=== PATIENT | male | born 1960 | race Caucasian/White ===

== ENCOUNTER 2018-11-23 21:28 | Inpatient (IN) | payer MEDICAID ==
[2018-11-23 23:39] LABS: ADD MAN DIFF? NO
[2018-11-23] MEDS: PIPER-TAZO 3.375 GM IV (PMX) 100 ML IVPB (23:40)
[2018-11-23] MEDS: VANCOMYCIN 1 GM (PMX) 250 ML IVPB (23:40)
[2018-11-23] MEDS: SOD CHLORIDE 0.9% 500 ML IV (23:41)
[2018-11-23 23:44] LABS: BASOPHILS % 0.7 % (0.0-2.0); EOSINOPHILS # 0.2 10^3/ul (0.0-0.5); EOSINOPHILS % 3.9 % (0.0-7.0); HEMATOCRIT 38.5 % (42.0-52.0); HEMOGLOBIN 13.2 g/dl (14.0-18.0); LYMPHOCYTES # 2.1 10^3/ul (0.8-2.9); LYMPHOCYTES % 36.1 % (15.0-51.0); MEAN CORPUSCULAR HEMOGLOBIN 29.3 pg (29.0-33.0); MEAN CORPUSCULAR HGB CONC 34.3 g/dl (32.0-37.0); MEAN CORPUSCULAR VOLUME 85.4 fl (82.0-101.0); MEAN PLATELET VOLUME 9.3 fl (7.4-10.4); MONOCYTE # 0.5 10^3/ul (0.3-0.9); MONOCYTES % 7.8 % (0.0-11.0); NEUTROPHILS % 51.2 % (39.0-77.0); PLATELET COUNT 267 10^3/UL (140-415); RED BLOOD COUNT 4.51 10^6/ul (4.70-6.10)
[2018-11-23 23:44] LABS: WHITE BLOOD COUNT 5.9 10^3/ul (4.8-10.8)
[2018-11-23 23:58] LABS: ALANINE AMINOTRANSFERASE 33 IU/L (13-69); ALBUMIN 3.8 g/dl (3.3-4.9); ALBUMIN/GLOBULIN RATIO 1.26; ALKALINE PHOSPHATASE 116 IU/L (42-121); ANION GAP 9 (5-13); ASPARTATE AMINO TRANSFERASE 24 IU/L (15-46); BILIRUBIN,INDIRECT 0.3 mg/dl (0-1.1); BILIRUBIN,TOTAL 0.3 mg/dl (0.2-1.3); BLOOD UREA NITROGEN 24 mg/dl (7-20); CALCIUM 8.9 mg/dl (8.4-10.2); CARBON DIOXIDE 26 mmol/L (21-31); CHLORIDE 106 mmol/L (97-110); CREATININE 0.78 mg/dl (0.61-1.24); Estimated GFR > 60 mL/min (>60); GLUCOSE 266 mg/dl (70-220); LIPASE 90 U/L (23-300); POTASSIUM 4.5 mmol/L (3.5-5.1); SODIUM 141 mmol/L (135-144); TOTAL PROTEIN 6.8 g/dl (6.1-8.1)
[2018-11-24] MEDS ORDERED: ACETAMINOPHEN 325 MG TAB PO
[2018-11-24] MEDS ORDERED: BISACODYL (EC) 5 MG TAB PO (00:30)
[2018-11-24] MEDS ORDERED: VANCOMYCIN IV PER PHARMACY XX (00:30)
[2018-11-24] MEDS ORDERED: ONDANSETRON 4 MG INJ IV ×2 (00:30)
[2018-11-24] MEDS ORDERED: NACL 0.9% 3 ML SYG IV (00:30)
[2018-11-24] MEDS ORDERED: DOCUSATE SODIUM 100 MG CAP PO (00:30)
[2018-11-24] MEDS ORDERED: DEXTROSE 50% 50 ML SYRINGE IV ×2 (01:00)
[2018-11-24] MEDS ORDERED: GLUCAGON 1 MG INJ IM (01:00)
[2018-11-24] MEDS ORDERED: GLUCOSE GEL 15 GRAM TUBE BUCCAL (01:00)
[2018-11-24] MEDS ORDERED: GLUCOSE GEL 15 GRAM TUBE PO ×2 (01:00)
[2018-11-24] MEDS: VANCOMYCIN 750 MG (PMX) 250 ML IVPB (01:48)
[2018-11-24] MEDS: ACCU-CHEK XX (03:11)
[2018-11-24] MEDS: INSULIN ASPART [NOVOLOG] 3 ML PEN SC ×6 (03:11→20:11)
[2018-11-24 03:24] LABS: ADD UMIC YES; UR ASCORBIC ACID NEGATIVE (NEGATIVE); UR BILIRUBIN (Dip) NEGATIVE (NEGATIVE); UR BLOOD (Dip) NEGATIVE (NEGATIVE); UR CLARITY CLEAR (CLEAR); UR COLOR YELLOW (YELLOW); UR GLUCOSE (Dip) 3+ mg/dL (NEGATIVE); UR KETONES (Dip) NEGATIVE (NEGATIVE); UR LEUKOCYTE ESTERASE (Dip) NEGATIVE Leu/ul (NEGATIVE); UR NITRITE (Dip) NEGATIVE (NEGATIVE); UR RBC 1 /HPF (0-5); UR SPECIFIC GRAVITY (Dip) 1.025 (1.003-1.030); UR TOTAL PROTEIN (Dip) 1+ mg/dl (NEGATIVE); UR UROBILINOGEN (Dip) NEGATIVE (NEGATIVE); UR WBC 0 /HPF (0-5)
[2018-11-24] MEDS: SOD CHLORIDE 0.9% 1,000 ML IV ×2 (04:48→22:16)
[2018-11-24 05:43] LABS: ADD MAN DIFF? NO
[2018-11-24 05:48] LABS: WHITE BLOOD COUNT 5.3 10^3/ul (4.8-10.8)
[2018-11-24 05:48] LABS: BASOPHIL # 0.1 10^3/ul (0.0-0.1); BASOPHILS % 0.9 % (0.0-2.0); EOSINOPHILS # 0.2 10^3/ul (0.0-0.5); HEMATOCRIT 38.1 % (42.0-52.0); HEMOGLOBIN 12.7 g/dl (14.0-18.0); LYMPHOCYTES # 1.8 10^3/ul (0.8-2.9); LYMPHOCYTES % 33.3 % (15.0-51.0); MEAN CORPUSCULAR HEMOGLOBIN 28.4 pg (29.0-33.0); MEAN CORPUSCULAR HGB CONC 33.3 g/dl (32.0-37.0); MEAN CORPUSCULAR VOLUME 85.2 fl (82.0-101.0); MEAN PLATELET VOLUME 8.9 fl (7.4-10.4); MONOCYTE # 0.5 10^3/ul (0.3-0.9); MONOCYTES % 8.5 % (0.0-11.0); NEUTROPHIL # 2.8 10^3/ul (1.6-7.5); NEUTROPHILS % 52.9 % (39.0-77.0); PLATELET COUNT 228 10^3/UL (140-415); RED BLOOD COUNT 4.47 10^6/ul (4.70-6.10); RED CELL DISTRIBUTION WIDTH 12.9 % (11.5-14.5)
[2018-11-24] MEDS: LISINOPRIL 10 MG TAB PO (05:57)
[2018-11-24] MEDS: PIPER-TAZO 3.375 GM IV (PMX) 100 ML IVPB ×3 (05:57→17:08)
[2018-11-24 06:10] LABS: INR 0.96; PROTIME 12.9 Sec (11.9-14.9)
[2018-11-24 06:11] LABS: PARTIAL THROMBOPLASTIN TIME 28.4 Sec (23.0-35.0)
[2018-11-24 06:15] LABS: ALANINE AMINOTRANSFERASE 26 IU/L (13-69); ALBUMIN 3.5 g/dl (3.3-4.9); ALBUMIN/GLOBULIN RATIO 1.16; ALKALINE PHOSPHATASE 106 IU/L (42-121); ANION GAP 7 (5-13); ASPARTATE AMINO TRANSFERASE 22 IU/L (15-46); BILIRUBIN,INDIRECT 0.3 mg/dl (0-1.1); BILIRUBIN,TOTAL 0.3 mg/dl (0.2-1.3); BLOOD UREA NITROGEN 19 mg/dl (7-20); CALCIUM 8.7 mg/dl (8.4-10.2); CARBON DIOXIDE 23 mmol/L (21-31); CHLORIDE 111 mmol/L (97-110); CHOL/HDL RATIO 6.6 RATIO; CHOLESTEROL 167 mg/dl (100-200); CREATININE 0.65 mg/dl (0.61-1.24); Estimated GFR > 60 mL/min (>60); GLUCOSE 229 mg/dl (70-220); HDL CHOLESTEROL 25 mg/dl (28-71); LDL CHOLESTEROL,CALCULATED 89 mg/dl; MAGNESIUM 1.9 mg/dl (1.7-2.5); POTASSIUM 4.7 mmol/L (3.5-5.1); SODIUM 141 mmol/L (135-144); TOTAL PROTEIN 6.5 g/dl (6.1-8.1); TRIGLYCERIDES 267 mg/dl (0-149)
[2018-11-24 06:25] LABS: HEMOGLOBIN A1C 8.6 % (0-5.9)
[2018-11-24 08:15] LABS: ERYTHROCYTE SEDIMENTATION RATE 10 mm/Hr (0-20)
[2018-11-24] MEDS: VANCOMYCIN 1.25 GM/NS 250 ML 250 ML IVPB (13:33)
[2018-11-24] MEDS: HYDROCODONE/APAP (5/325) TAB PO (19:21)
[2018-11-24] MEDS: METOPROLOL 50 MG TAB PO (21:00)
[2018-11-24] MEDS ORDERED: PENDING SANTYL ORDER FOR WOUND CARE XX (23:00)
[2018-11-25] MEDS: INSULIN ASPART [NOVOLOG] 3 ML PEN SC ×6 (00:29→20:35)
[2018-11-25] MEDS: VANCOMYCIN 1.25 GM/NS 250 ML 250 ML IVPB ×2 (00:29→12:09)
[2018-11-25] MEDS: PIPER-TAZO 3.375 GM IV (PMX) 100 ML IVPB ×3 (00:29→11:20)
[2018-11-25] MEDS: ACCU-CHEK XX (01:25)
[2018-11-25] MEDS: SOD CHLORIDE 0.9% 1,000 ML IV ×3 (02:50→20:38)
[2018-11-25 05:17] LABS: ADD MAN DIFF? NO
[2018-11-25 05:22] LABS: WHITE BLOOD COUNT 6.3 10^3/ul (4.8-10.8)
[2018-11-25 05:22] LABS: BASOPHIL # 0.1 10^3/ul (0.0-0.1); BASOPHILS % 0.8 % (0.0-2.0); EOSINOPHILS # 0.2 10^3/ul (0.0-0.5); HEMATOCRIT 42.3 % (42.0-52.0); HEMOGLOBIN 13.8 g/dl (14.0-18.0); LYMPHOCYTES # 1.8 10^3/ul (0.8-2.9); LYMPHOCYTES % 27.8 % (15.0-51.0); MEAN CORPUSCULAR HEMOGLOBIN 27.9 pg (29.0-33.0); MEAN CORPUSCULAR HGB CONC 32.6 g/dl (32.0-37.0); MEAN CORPUSCULAR VOLUME 85.6 fl (82.0-101.0); MEAN PLATELET VOLUME 8.7 fl (7.4-10.4); MONOCYTE # 0.4 10^3/ul (0.3-0.9); MONOCYTES % 6.5 % (0.0-11.0); NEUTROPHIL # 3.9 10^3/ul (1.6-7.5); NEUTROPHILS % 61.6 % (39.0-77.0); PLATELET COUNT 244 10^3/UL (140-415); RED BLOOD COUNT 4.94 10^6/ul (4.70-6.10); RED CELL DISTRIBUTION WIDTH 13.1 % (11.5-14.5)
[2018-11-25 05:47] LABS: ALANINE AMINOTRANSFERASE 28 IU/L (13-69); ALBUMIN 3.6 g/dl (3.3-4.9); ALBUMIN/GLOBULIN RATIO 1.12; ALKALINE PHOSPHATASE 91 IU/L (42-121); ANION GAP 5 (5-13); ASPARTATE AMINO TRANSFERASE 23 IU/L (15-46); BILIRUBIN,INDIRECT 0.6 mg/dl (0-1.1); BILIRUBIN,TOTAL 0.6 mg/dl (0.2-1.3); BLOOD UREA NITROGEN 14 mg/dl (7-20); C-REACTIVE PROTEIN 0.7 mg/dl (0.0-0.9); CALCIUM 9.3 mg/dl (8.4-10.2); CARBON DIOXIDE 30 mmol/L (21-31); CHLORIDE 105 mmol/L (97-110); CREATININE 0.79 mg/dl (0.61-1.24); Estimated GFR > 60 mL/min (>60); GLUCOSE 160 mg/dl (70-220); POTASSIUM 4.5 mmol/L (3.5-5.1); SODIUM 140 mmol/L (135-144); TOTAL PROTEIN 6.8 g/dl (6.1-8.1)
[2018-11-25] MEDS: ACETAMINOPHEN 325 MG TAB PO (05:48)
[2018-11-25] MEDS: METOPROLOL 50 MG TAB PO (08:23)
[2018-11-25] MEDS: LISINOPRIL 20 MG TAB PO (08:23)
[2018-11-25] MEDS: MULTIVITAMINS THERAPEUTIC TAB PO (12:05)
[2018-11-25] MEDS: ZINC SULFATE 220 MG CAP PO (12:05)
[2018-11-25] MEDS: ASCORBIC ACID 500 MG TAB PO ×2 (12:05→20:33)
[2018-11-25] MEDS: CEFTRIAXONE 1 GM/50 ML (PMX) 50 ML IVPB (14:30)
[2018-11-25 16:43] LABS: CREATININE, RANDOM URINE 82 mg/dL (20-320); MICROALBUMIN 9.6 mg/dL; MICROALBUMIN/CREATININE RATIO 117 (<30)
[2018-11-25] MEDS: AMLODIPINE 10 MG TAB PO (17:15)
[2018-11-25] MEDS: hydrALAzine 20 MG INJ IV (20:33)
[2018-11-26] MEDS: VANCOMYCIN 1.5 GM/NS 250 ML 250 ML IVPB ×3 (01:06→23:49)
[2018-11-26] MEDS: INSULIN ASPART [NOVOLOG] 3 ML PEN SC ×6 (01:16→20:33)
[2018-11-26] MEDS: ACCU-CHEK XX (01:16)
[2018-11-26 06:52] LABS: ADD MAN DIFF? NO
[2018-11-26 06:56] LABS: BASOPHIL # 0.1 10^3/ul (0.0-0.1); BASOPHILS % 0.7 % (0.0-2.0); EOSINOPHILS # 0.2 10^3/ul (0.0-0.5); EOSINOPHILS % 2.9 % (0.0-7.0); HEMATOCRIT 40.9 % (42.0-52.0); HEMOGLOBIN 13.6 g/dl (14.0-18.0); LYMPHOCYTES # 1.9 10^3/ul (0.8-2.9); LYMPHOCYTES % 26.1 % (15.0-51.0); MEAN CORPUSCULAR HEMOGLOBIN 28.3 pg (29.0-33.0); MEAN CORPUSCULAR HGB CONC 33.3 g/dl (32.0-37.0); MEAN CORPUSCULAR VOLUME 85.2 fl (82.0-101.0); MEAN PLATELET VOLUME 9.1 fl (7.4-10.4); MONOCYTE # 0.5 10^3/ul (0.3-0.9); MONOCYTES % 6.3 % (0.0-11.0); NEUTROPHIL # 4.7 10^3/ul (1.6-7.5); NEUTROPHILS % 63.7 % (39.0-77.0); PLATELET COUNT 258 10^3/UL (140-415)
[2018-11-26 06:56] LABS: WHITE BLOOD COUNT 7.3 10^3/ul (4.8-10.8)
[2018-11-26 07:26] LABS: ALANINE AMINOTRANSFERASE 30 IU/L (13-69); ALBUMIN 3.4 g/dl (3.3-4.9); ALBUMIN/GLOBULIN RATIO 1.06; ALKALINE PHOSPHATASE 84 IU/L (42-121); ANION GAP 6 (5-13); ASPARTATE AMINO TRANSFERASE 19 IU/L (15-46); BILIRUBIN,INDIRECT 0.4 mg/dl (0-1.1); BILIRUBIN,TOTAL 0.4 mg/dl (0.2-1.3); BLOOD UREA NITROGEN 15 mg/dl (7-20); CALCIUM 9.3 mg/dl (8.4-10.2); CARBON DIOXIDE 28 mmol/L (21-31); CHLORIDE 106 mmol/L (97-110); CREATININE 0.85 mg/dl (0.61-1.24); Estimated GFR > 60 mL/min (>60); GLUCOSE 187 mg/dl (70-220); POTASSIUM 4.5 mmol/L (3.5-5.1); SODIUM 140 mmol/L (135-144); TOTAL PROTEIN 6.6 g/dl (6.1-8.1)
[2018-11-26] MEDS: LISINOPRIL 20 MG TAB PO (08:32)
[2018-11-26] MEDS: AMLODIPINE 10 MG TAB PO (08:33)
[2018-11-26] MEDS: ZINC SULFATE 220 MG CAP PO (08:34)
[2018-11-26] MEDS: ASCORBIC ACID 500 MG TAB PO ×2 (08:34→20:34)
[2018-11-26] MEDS: MULTIVITAMINS THERAPEUTIC TAB PO (08:34)
[2018-11-26] MEDS: CEFTRIAXONE 1 GM/50 ML (PMX) 50 ML IVPB ×2 (14:00→17:21)
[2018-11-26] MEDS ORDERED: PROPOFOL 20 ML (15:23)
[2018-11-26] MEDS ORDERED: FENTAnyl 50 MCG/ML VIAL (15:23)
[2018-11-26] MEDS ORDERED: MIDAZOLAM 1 MG/ML 2 ML INJ (15:23)
[2018-11-26] MEDS ORDERED: ROPIVACAINE 0.2% 20 ML VIAL (15:24)
[2018-11-26] MEDS: LIDOCAINE 1% (MPF) 10 ML INJ INJ (15:30)
[2018-11-26] MEDS: SOD CHLORIDE 0.9% 1,000 ML IV (18:38)
[2018-11-27] MEDS ORDERED: INSULIN ASPART [NOVOLOG] 3 ML PEN SC (01:00)
[2018-11-27] MEDS: INSULIN ASPART [NOVOLOG] 3 ML PEN SC ×6 (01:28→20:47)
[2018-11-27] MEDS: ACCU-CHEK XX (02:00)
[2018-11-27] MEDS: morphine 2 MG INJ IV ×2 (05:12→20:48)
[2018-11-27 06:07] LABS: ADD MAN DIFF? NO
[2018-11-27 06:16] LABS: WHITE BLOOD COUNT 6.4 10^3/ul (4.8-10.8)
[2018-11-27 06:16] LABS: BASOPHIL # 0.1 10^3/ul (0.0-0.1); BASOPHILS % 0.8 % (0.0-2.0); EOSINOPHILS # 0.2 10^3/ul (0.0-0.5); EOSINOPHILS % 3.6 % (0.0-7.0); HEMATOCRIT 40.5 % (42.0-52.0); HEMOGLOBIN 13.6 g/dl (14.0-18.0); LYMPHOCYTES # 1.8 10^3/ul (0.8-2.9); LYMPHOCYTES % 27.2 % (15.0-51.0); MEAN CORPUSCULAR HEMOGLOBIN 28.4 pg (29.0-33.0); MEAN CORPUSCULAR HGB CONC 33.6 g/dl (32.0-37.0); MEAN CORPUSCULAR VOLUME 84.6 fl (82.0-101.0); MEAN PLATELET VOLUME 9.1 fl (7.4-10.4); MONOCYTE # 0.6 10^3/ul (0.3-0.9); MONOCYTES % 8.9 % (0.0-11.0); NEUTROPHIL # 3.8 10^3/ul (1.6-7.5); NEUTROPHILS % 59.3 % (39.0-77.0); PLATELET COUNT 256 10^3/UL (140-415); RED BLOOD COUNT 4.79 10^6/ul (4.70-6.10); RED CELL DISTRIBUTION WIDTH 12.9 % (11.5-14.5)
[2018-11-27 06:49] LABS: ALANINE AMINOTRANSFERASE 29 IU/L (13-69); ALBUMIN 3.5 g/dl (3.3-4.9); ALBUMIN/GLOBULIN RATIO 1.16; ALKALINE PHOSPHATASE 83 IU/L (42-121); ANION GAP 5 (5-13); ASPARTATE AMINO TRANSFERASE 23 IU/L (15-46); BILIRUBIN,INDIRECT 0.4 mg/dl (0-1.1); BILIRUBIN,TOTAL 0.4 mg/dl (0.2-1.3); BLOOD UREA NITROGEN 17 mg/dl (7-20); CALCIUM 9.1 mg/dl (8.4-10.2); CARBON DIOXIDE 28 mmol/L (21-31); CHLORIDE 106 mmol/L (97-110); CREATININE 0.89 mg/dl (0.61-1.24); Estimated GFR > 60 mL/min (>60); GLUCOSE 196 mg/dl (70-220); POTASSIUM 4.5 mmol/L (3.5-5.1); SODIUM 139 mmol/L (135-144); TOTAL PROTEIN 6.5 g/dl (6.1-8.1)
[2018-11-27] MEDS ORDERED: HEPARIN 1000 UNITS/NS (A-LINE) 1,000 ML (06:57)
[2018-11-27] MEDS ORDERED: LIDOCAINE 1% (MDV) 20 ML INJ (06:57)
[2018-11-27] MEDS ORDERED: FENTAnyl 50 MCG/ML VIAL (06:57)
[2018-11-27] MEDS ORDERED: IODIXANOL LOCM 100 ML BTL (06:57)
[2018-11-27] MEDS ORDERED: MIDAZOLAM 1 MG/ML 2 ML INJ (06:58)
[2018-11-27] MEDS ORDERED: CLOPIDOGREL 300 MG TAB (08:28)
[2018-11-27] MEDS ORDERED: SOD CHLORIDE 0.9% 500 ML (08:28)
[2018-11-27] MEDS: CLOPIDOGREL 75 MG TAB PO (09:05)
[2018-11-27] MEDS: LISINOPRIL 20 MG TAB PO (10:22)
[2018-11-27] MEDS: MULTIVITAMINS THERAPEUTIC TAB PO (10:22)
[2018-11-27] MEDS: AMLODIPINE 10 MG TAB PO (10:22)
[2018-11-27] MEDS: ZINC SULFATE 220 MG CAP PO (10:22)
[2018-11-27] MEDS: ASCORBIC ACID 500 MG TAB PO ×2 (10:24→20:48)
[2018-11-27] MEDS: SOD CHLORIDE 0.9% 1,000 ML IV ×3 (12:39→21:30)
[2018-11-27 12:51] LABS: VANCOMYCIN,TROUGH 11.4 ug/ml (10.0-20.0)
[2018-11-27] MEDS: CEFTRIAXONE 1 GM/50 ML (PMX) 50 ML IVPB (13:35)
[2018-11-27] MEDS: VANCOMYCIN 1.5 GM/NS 250 ML 250 ML IVPB (14:07)
[2018-11-27] MEDS: HYDROCODONE/APAP (5/325) TAB PO (17:23)
[2018-11-28] MEDS: VANCOMYCIN HCL 1.75 GM in SOD CHLORIDE 0.9% 500 ML IVPB ×2 (00:37→11:39)
[2018-11-28] MEDS: ACCU-CHEK XX (02:04)
[2018-11-28] MEDS: morphine 2 MG INJ IV ×2 (07:41→12:29)
[2018-11-28] MEDS: ASCORBIC ACID 500 MG TAB PO ×2 (08:16→20:48)
[2018-11-28] MEDS: LISINOPRIL 20 MG TAB PO (08:16)
[2018-11-28] MEDS: AMLODIPINE 10 MG TAB PO (08:16)
[2018-11-28] MEDS: CLOPIDOGREL 75 MG TAB PO (08:17)
[2018-11-28] MEDS: MULTIVITAMINS THERAPEUTIC TAB PO (08:17)
[2018-11-28] MEDS: ZINC SULFATE 220 MG CAP PO (08:17)
[2018-11-28] MEDS: INSULIN ASPART [NOVOLOG] 3 ML PEN SC ×4 (08:19→20:49)
[2018-11-28] MEDS: SOD CHLORIDE 0.9% 1,000 ML IV ×2 (10:22→11:41)
[2018-11-28] MEDS: DAKINS 0.0125%(1/40) 473 ML SOLUTION TP (13:45)
[2018-11-28] MEDS: CEFTRIAXONE 2 GM/50 ML (PMX) 50 ML IVPB (15:50)
[2018-11-29] MEDS: VANCOMYCIN HCL 1.75 GM in SOD CHLORIDE 0.9% 500 ML IVPB ×2 (00:38→11:38)
[2018-11-29] MEDS: ACCU-CHEK XX (02:33)
[2018-11-29] MEDS: SOD CHLORIDE 0.9% 1,000 ML IV ×2 (06:21→20:30)
[2018-11-29 07:06] LABS: CREATININE 0.82 mg/dl (0.61-1.24)
[2018-11-29 07:06] LABS: BLOOD UREA NITROGEN 14 mg/dl (7-20)
[2018-11-29] MEDS: ZINC SULFATE 220 MG CAP PO (08:31)
[2018-11-29] MEDS: CLOPIDOGREL 75 MG TAB PO (08:32)
[2018-11-29] MEDS: ASCORBIC ACID 500 MG TAB PO ×2 (08:32→20:34)
[2018-11-29] MEDS: LISINOPRIL 20 MG TAB PO (08:32)
[2018-11-29] MEDS: AMLODIPINE 10 MG TAB PO (08:32)
[2018-11-29] MEDS: MULTIVITAMINS THERAPEUTIC TAB PO (08:32)
[2018-11-29] MEDS: INSULIN ASPART [NOVOLOG] 3 ML PEN SC ×4 (08:33→20:33)
[2018-11-29] MEDS: DAKINS 0.0125%(1/40) 473 ML SOLUTION TP (12:12)
[2018-11-29] MEDS: morphine 2 MG INJ IV ×2 (15:23→15:31)
[2018-11-29] MEDS: CEFTRIAXONE 2 GM/50 ML (PMX) 50 ML IVPB (15:23)
[2018-11-29] MEDS: HYDROCODONE/APAP (5/325) TAB PO (19:42)
[2018-11-30 00:22] LABS: VANCOMYCIN,TROUGH 12.3 ug/ml (10.0-20.0)
[2018-11-30] MEDS: VANCOMYCIN HCL 1.75 GM in SOD CHLORIDE 0.9% 500 ML IVPB (00:56)
[2018-11-30] MEDS: SOD CHLORIDE 0.9% 1,000 ML IV (00:56)
[2018-11-30] MEDS: ACCU-CHEK XX (01:03)
[2018-11-30] MEDS: CLOPIDOGREL 75 MG TAB PO (08:16)
[2018-11-30] MEDS: MULTIVITAMINS THERAPEUTIC TAB PO (08:16)
[2018-11-30] MEDS: ZINC SULFATE 220 MG CAP PO (08:16)
[2018-11-30] MEDS: ASCORBIC ACID 500 MG TAB PO ×2 (08:16→21:07)
[2018-11-30] MEDS: AMLODIPINE 10 MG TAB PO (08:19)
[2018-11-30] MEDS: LISINOPRIL 20 MG TAB PO (08:19)
[2018-11-30] MEDS: INSULIN ASPART [NOVOLOG] 3 ML PEN SC ×5 (08:21→21:07)
[2018-11-30] MEDS: VANCOMYCIN HCL 2 GM in SOD CHLORIDE 0.9% 500 ML IVPB (11:43)
[2018-11-30] MEDS: DAKINS 0.0125%(1/40) 473 ML SOLUTION TP (12:05)
[2018-11-30] MEDS: INSULIN GLARGINE [LANTus] (100 UNITS/ML) SYG SC (21:06)
[2018-12-01] MEDS: VANCOMYCIN HCL 2 GM in SOD CHLORIDE 0.9% 500 ML IVPB ×2 (01:03→12:32)
[2018-12-01] MEDS: ACCU-CHEK XX (02:38)
[2018-12-01 07:09] LABS: BLOOD UREA NITROGEN 21 mg/dl (7-20)
[2018-12-01 07:09] LABS: CREATININE 0.98 mg/dl (0.61-1.24)
[2018-12-01] MEDS: INSULIN ASPART [NOVOLOG] 3 ML PEN SC ×7 (08:25→20:20)
[2018-12-01] MEDS: ZINC SULFATE 220 MG CAP PO (09:01)
[2018-12-01] MEDS: MULTIVITAMINS THERAPEUTIC TAB PO (09:01)
[2018-12-01] MEDS: ASCORBIC ACID 500 MG TAB PO ×2 (09:02→20:20)
[2018-12-01] MEDS: CLOPIDOGREL 75 MG TAB PO (09:02)
[2018-12-01] MEDS: DAKINS 0.0125%(1/40) 473 ML SOLUTION TP (09:02)
[2018-12-01] MEDS: AMLODIPINE 10 MG TAB PO (09:02)
[2018-12-01] MEDS: LISINOPRIL 20 MG TAB PO (09:02)
[2018-12-01 15:51] LABS: ADD MAN DIFF? NO
[2018-12-01 15:53] LABS: WHITE BLOOD COUNT 5.6 10^3/ul (4.8-10.8)
[2018-12-01 15:53] LABS: BASOPHILS % 0.7 % (0.0-2.0); EOSINOPHILS # 0.2 10^3/ul (0.0-0.5); EOSINOPHILS % 3.8 % (0.0-7.0); HEMATOCRIT 36.7 % (42.0-52.0); HEMOGLOBIN 12.5 g/dl (14.0-18.0); LYMPHOCYTES # 1.6 10^3/ul (0.8-2.9); LYMPHOCYTES % 27.9 % (15.0-51.0); MEAN CORPUSCULAR HEMOGLOBIN 28.5 pg (29.0-33.0); MEAN CORPUSCULAR HGB CONC 34.1 g/dl (32.0-37.0); MEAN CORPUSCULAR VOLUME 83.8 fl (82.0-101.0); MONOCYTE # 0.4 10^3/ul (0.3-0.9); MONOCYTES % 7.5 % (0.0-11.0); NEUTROPHIL # 3.4 10^3/ul (1.6-7.5); NEUTROPHILS % 59.9 % (39.0-77.0); PLATELET COUNT 268 10^3/UL (140-415); RED BLOOD COUNT 4.38 10^6/ul (4.70-6.10); RED CELL DISTRIBUTION WIDTH 12.5 % (11.5-14.5)
[2018-12-01 16:10] LABS: ANION GAP 8 (5-13); BLOOD UREA NITROGEN 20 mg/dl (7-20); CALCIUM 9.1 mg/dl (8.4-10.2); CARBON DIOXIDE 27 mmol/L (21-31); CHLORIDE 102 mmol/L (97-110); CREATININE 0.88 mg/dl (0.61-1.24); Estimated GFR > 60 mL/min (>60); GLUCOSE 276 mg/dl (70-220); SODIUM 137 mmol/L (135-144)
[2018-12-01] MEDS: HYDROCODONE/APAP (5/325) TAB PO (19:54)
[2018-12-01] MEDS: INSULIN GLARGINE [LANTus] (100 UNITS/ML) SYG SC (20:18)
[2018-12-01] MEDS: morphine 2 MG INJ IV (23:12)
[2018-12-02 00:17] LABS: VANCOMYCIN,TROUGH 22.4 ug/ml (10.0-20.0)
[2018-12-02] MEDS: ACCU-CHEK XX (02:08)
[2018-12-02] MEDS: VANCOMYCIN 1.5 GM/NS 250 ML 250 ML IVPB ×2 (05:30→17:54)
[2018-12-02] MEDS: INSULIN ASPART [NOVOLOG] 3 ML PEN SC ×7 (08:13→20:39)
[2018-12-02] MEDS: ASCORBIC ACID 500 MG TAB PO ×2 (09:35→20:26)
[2018-12-02] MEDS: CLOPIDOGREL 75 MG TAB PO (09:35)
[2018-12-02] MEDS: ZINC SULFATE 220 MG CAP PO (09:35)
[2018-12-02] MEDS: MULTIVITAMINS THERAPEUTIC TAB PO (09:36)
[2018-12-02] MEDS: LISINOPRIL 20 MG TAB PO (09:36)
[2018-12-02] MEDS: AMLODIPINE 10 MG TAB PO (09:36)
[2018-12-02] MEDS: DAKINS 0.0125%(1/40) 473 ML SOLUTION TP (09:37)
[2018-12-02] MEDS ORDERED: morphine 2 MG INJ IV (12:30)
[2018-12-02] MEDS: GABAPENTIN 100 MG CAP PO ×3 (12:34→20:27)
[2018-12-02] MEDS: HYDROCODONE/APAP (5/325) TAB PO (15:09)
[2018-12-02] MEDS: INSULIN GLARGINE [LANTus] (100 UNITS/ML) SYG SC (20:29)
[2018-12-03] MEDS: ACCU-CHEK XX (02:00)
[2018-12-03] MEDS: VANCOMYCIN 1.5 GM/NS 250 ML 250 ML IVPB ×2 (06:09→18:47)
[2018-12-03] MEDS: LIDOCAINE 1% (MPF) 5 ML VIAL SC (08:07)
[2018-12-03] MEDS: AMLODIPINE 10 MG TAB PO (08:09)
[2018-12-03] MEDS: ZINC SULFATE 220 MG CAP PO (08:09)
[2018-12-03] MEDS: ASCORBIC ACID 500 MG TAB PO ×2 (08:09→19:50)
[2018-12-03] MEDS: LISINOPRIL 20 MG TAB PO (08:09)
[2018-12-03] MEDS: GABAPENTIN 100 MG CAP PO ×3 (08:09→19:49)
[2018-12-03] MEDS: MULTIVITAMINS THERAPEUTIC TAB PO (08:09)
[2018-12-03] MEDS: CLOPIDOGREL 75 MG TAB PO (08:09)
[2018-12-03] MEDS: INSULIN ASPART [NOVOLOG] 3 ML PEN SC ×7 (08:11→19:50)
[2018-12-03] MEDS: DAKINS 0.0125%(1/40) 473 ML SOLUTION TP (08:12)
[2018-12-03 17:10] LABS: VANCOMYCIN,TROUGH 14.4 ug/ml (10.0-20.0)
[2018-12-03] MEDS: INSULIN GLARGINE [LANTus] (100 UNITS/ML) SYG SC (19:54)
[2018-12-04] MEDS: HYDROCODONE/APAP (5/325) TAB PO (01:13)
[2018-12-04] MEDS: ACCU-CHEK XX (02:00)
[2018-12-04] MEDS: VANCOMYCIN 1.5 GM/NS 250 ML 250 ML IVPB ×2 (05:35→17:31)
[2018-12-04 06:09] LABS: CREATININE 0.86 mg/dl (0.61-1.24)
[2018-12-04 06:09] LABS: BLOOD UREA NITROGEN 25 mg/dl (7-20)
[2018-12-04] MEDS: INSULIN ASPART [NOVOLOG] 3 ML PEN SC ×7 (08:00→20:29)
[2018-12-04] MEDS: ASCORBIC ACID 500 MG TAB PO ×2 (08:09→20:29)
[2018-12-04] MEDS: CLOPIDOGREL 75 MG TAB PO (08:09)
[2018-12-04] MEDS: GABAPENTIN 100 MG CAP PO ×3 (08:09→20:29)
[2018-12-04] MEDS: ZINC SULFATE 220 MG CAP PO (08:09)
[2018-12-04] MEDS: MULTIVITAMINS THERAPEUTIC TAB PO (08:09)
[2018-12-04] MEDS: AMLODIPINE 10 MG TAB PO (08:11)
[2018-12-04] MEDS: LISINOPRIL 20 MG TAB PO (08:11)
[2018-12-04] MEDS: DAKINS 0.0125%(1/40) 473 ML SOLUTION TP (08:11)
[2018-12-04] MEDS: INSULIN GLARGINE [LANTus] (100 UNITS/ML) SYG SC (20:35)
[2018-12-05] MEDS: ACCU-CHEK XX (02:00)
[2018-12-05] MEDS: VANCOMYCIN 1.5 GM/NS 250 ML 250 ML IVPB ×2 (05:51→17:37)
[2018-12-05] MEDS: ZINC SULFATE 220 MG CAP PO (08:22)
[2018-12-05] MEDS: GABAPENTIN 100 MG CAP PO ×3 (08:22→20:21)
[2018-12-05] MEDS: MULTIVITAMINS THERAPEUTIC TAB PO (08:22)
[2018-12-05] MEDS: CLOPIDOGREL 75 MG TAB PO (08:22)
[2018-12-05] MEDS: ASCORBIC ACID 500 MG TAB PO ×2 (08:22→20:21)
[2018-12-05] MEDS: INSULIN ASPART [NOVOLOG] 3 ML PEN SC ×7 (08:25→21:00)
[2018-12-05] MEDS: LISINOPRIL 20 MG TAB PO (08:27)
[2018-12-05] MEDS: AMLODIPINE 10 MG TAB PO (08:27)
[2018-12-05] MEDS: DAKINS 0.0125%(1/40) 473 ML SOLUTION TP (08:27)
[2018-12-05] MEDS: INSULIN GLARGINE [LANTus] (100 UNITS/ML) SYG SC (20:22)
[2018-12-06] MEDS: ACCU-CHEK XX (02:00)
[2018-12-06] MEDS: VANCOMYCIN 1.5 GM/NS 250 ML 250 ML IVPB ×2 (05:34→18:10)
[2018-12-06] MEDS: INSULIN ASPART [NOVOLOG] 3 ML PEN SC ×7 (08:00→20:56)
[2018-12-06] MEDS: CLOPIDOGREL 75 MG TAB PO (08:13)
[2018-12-06] MEDS: MULTIVITAMINS THERAPEUTIC TAB PO (08:13)
[2018-12-06] MEDS: ZINC SULFATE 220 MG CAP PO (08:14)
[2018-12-06] MEDS: AMLODIPINE 10 MG TAB PO (08:14)
[2018-12-06] MEDS: LISINOPRIL 20 MG TAB PO (08:14)
[2018-12-06] MEDS: GABAPENTIN 100 MG CAP PO ×3 (08:14→20:52)
[2018-12-06] MEDS: ASCORBIC ACID 500 MG TAB PO ×2 (08:14→20:52)
[2018-12-06] MEDS: DAKINS 0.0125%(1/40) 473 ML SOLUTION TP (08:15)
[2018-12-06] MEDS: ALTEPLASE (CATHFLO) 2 MG INJ CATHETER (15:48)
[2018-12-06 17:11] LABS: VANCOMYCIN,TROUGH 11.6 ug/ml (10.0-20.0)
[2018-12-06] MEDS: INSULIN GLARGINE [LANTus] (100 UNITS/ML) SYG SC (20:53)
[2018-12-07] MEDS: ACCU-CHEK XX (02:00)
[2018-12-07] MEDS: VANCOMYCIN HCL 1.75 GM in SOD CHLORIDE 0.9% 500 ML IVPB ×2 (05:59→17:34)
[2018-12-07 06:09] LABS: ADD MAN DIFF? NO
[2018-12-07 06:20] LABS: BASOPHIL # 0.1 10^3/ul (0.0-0.1); BASOPHILS % 1.1 % (0.0-2.0); EOSINOPHILS # 0.2 10^3/ul (0.0-0.5); EOSINOPHILS % 3.8 % (0.0-7.0); HEMATOCRIT 35.7 % (42.0-52.0); LYMPHOCYTES # 1.4 10^3/ul (0.8-2.9); LYMPHOCYTES % 26.2 % (15.0-51.0); MEAN CORPUSCULAR HEMOGLOBIN 28.8 pg (29.0-33.0); MEAN CORPUSCULAR HGB CONC 33.6 g/dl (32.0-37.0); MEAN CORPUSCULAR VOLUME 85.6 fl (82.0-101.0); MONOCYTE # 0.4 10^3/ul (0.3-0.9); MONOCYTES % 7.8 % (0.0-11.0); NEUTROPHIL # 3.3 10^3/ul (1.6-7.5); NEUTROPHILS % 60.7 % (39.0-77.0); PLATELET COUNT 269 10^3/UL (140-415); RED BLOOD COUNT 4.17 10^6/ul (4.70-6.10); RED CELL DISTRIBUTION WIDTH 12.7 % (11.5-14.5)
[2018-12-07 06:20] LABS: WHITE BLOOD COUNT 5.5 10^3/ul (4.8-10.8)
[2018-12-07 06:48] LABS: ANION GAP 6 (5-13); BLOOD UREA NITROGEN 21 mg/dl (7-20); CALCIUM 9.1 mg/dl (8.4-10.2); CARBON DIOXIDE 30 mmol/L (21-31); CHLORIDE 103 mmol/L (97-110); CREATININE 0.76 mg/dl (0.61-1.24); Estimated GFR > 60 mL/min (>60); GLUCOSE 131 mg/dl (70-220); SODIUM 139 mmol/L (135-144)
[2018-12-07] MEDS: INSULIN ASPART [NOVOLOG] 3 ML PEN SC ×7 (08:00→20:44)
[2018-12-07] MEDS: CLOPIDOGREL 75 MG TAB PO (09:29)
[2018-12-07] MEDS: AMLODIPINE 10 MG TAB PO (09:29)
[2018-12-07] MEDS: GABAPENTIN 100 MG CAP PO ×3 (09:29→20:08)
[2018-12-07] MEDS: ZINC SULFATE 220 MG CAP PO (09:29)
[2018-12-07] MEDS: ASCORBIC ACID 500 MG TAB PO ×2 (09:30→20:08)
[2018-12-07] MEDS: MULTIVITAMINS THERAPEUTIC TAB PO (09:30)
[2018-12-07] MEDS: LISINOPRIL 20 MG TAB PO (09:30)
[2018-12-07] MEDS: DAKINS 0.0125%(1/40) 473 ML SOLUTION TP (09:30)
[2018-12-07] MEDS: INSULIN GLARGINE [LANTus] (100 UNITS/ML) SYG SC (20:10)
[2018-12-08] MEDS: ACCU-CHEK XX (02:00)
[2018-12-08] MEDS: VANCOMYCIN HCL 1.75 GM in SOD CHLORIDE 0.9% 500 ML IVPB ×2 (05:26→18:26)
[2018-12-08] MEDS: INSULIN ASPART [NOVOLOG] 3 ML PEN SC ×7 (08:24→19:54)
[2018-12-08] MEDS: CLOPIDOGREL 75 MG TAB PO (08:28)
[2018-12-08] MEDS: LISINOPRIL 20 MG TAB PO (08:29)
[2018-12-08] MEDS: GABAPENTIN 100 MG CAP PO ×3 (08:31→19:52)
[2018-12-08] MEDS: ASCORBIC ACID 500 MG TAB PO ×2 (08:31→19:52)
[2018-12-08] MEDS: MULTIVITAMINS THERAPEUTIC TAB PO (08:31)
[2018-12-08] MEDS: AMLODIPINE 10 MG TAB PO (08:32)
[2018-12-08] MEDS: DAKINS 0.0125%(1/40) 473 ML SOLUTION TP (11:23)
[2018-12-08] MEDS: INSULIN GLARGINE [LANTus] (100 UNITS/ML) SYG SC (19:55)
[2018-12-09] MEDS: ACCU-CHEK XX ×2 (02:00→20:21)
[2018-12-09] MEDS: VANCOMYCIN HCL 1.75 GM in SOD CHLORIDE 0.9% 500 ML IVPB ×2 (07:00→17:36)
[2018-12-09] MEDS: INSULIN ASPART [NOVOLOG] 3 ML PEN SC ×7 (08:16→20:13)
[2018-12-09] MEDS: CLOPIDOGREL 75 MG TAB PO (08:17)
[2018-12-09] MEDS: LISINOPRIL 20 MG TAB PO (08:17)
[2018-12-09] MEDS: MULTIVITAMINS THERAPEUTIC TAB PO (08:17)
[2018-12-09] MEDS: GABAPENTIN 100 MG CAP PO ×3 (08:17→20:13)
[2018-12-09] MEDS: ASCORBIC ACID 500 MG TAB PO ×2 (08:18→20:13)
[2018-12-09] MEDS: AMLODIPINE 10 MG TAB PO (08:18)
[2018-12-09] MEDS: DAKINS 0.0125%(1/40) 473 ML SOLUTION TP (08:18)
[2018-12-09] MEDS: INSULIN GLARGINE [LANTus] (100 UNITS/ML) SYG SC (20:14)
[2018-12-09] MEDS ORDERED: LACTOBACILLUS RHAMNOSUS CAP PO (21:00)
[2018-12-10] MEDS: VANCOMYCIN HCL 1.75 GM in SOD CHLORIDE 0.9% 500 ML IVPB ×2 (05:53→17:56)
[2018-12-10] MEDS: INSULIN ASPART [NOVOLOG] 3 ML PEN SC ×7 (07:57→20:49)
[2018-12-10] MEDS: DAKINS 0.0125%(1/40) 473 ML SOLUTION TP ×2 (08:02→17:28)
[2018-12-10] MEDS: AMLODIPINE 10 MG TAB PO (08:51)
[2018-12-10] MEDS: LISINOPRIL 20 MG TAB PO (08:51)
[2018-12-10] MEDS: ASCORBIC ACID 500 MG TAB PO ×2 (08:51→20:43)
[2018-12-10] MEDS: GABAPENTIN 100 MG CAP PO ×3 (08:51→20:43)
[2018-12-10] MEDS: MULTIVITAMINS THERAPEUTIC TAB PO (08:51)
[2018-12-10] MEDS: CLOPIDOGREL 75 MG TAB PO (08:51)
[2018-12-10] MEDS: HYDROCODONE/APAP (5/325) TAB PO (17:36)
[2018-12-10] MEDS: INSULIN GLARGINE [LANTus] (100 UNITS/ML) SYG SC (20:47)
[2018-12-11] MEDS: HYDROCODONE/APAP (5/325) TAB PO ×2 (00:39→09:37)
[2018-12-11] MEDS: ACCU-CHEK XX (01:32)
[2018-12-11] MEDS: VANCOMYCIN HCL 1.75 GM in SOD CHLORIDE 0.9% 500 ML IVPB ×2 (06:01→17:42)
[2018-12-11] MEDS: INSULIN ASPART [NOVOLOG] 3 ML PEN SC ×7 (07:58→20:59)
[2018-12-11] MEDS: MULTIVITAMINS THERAPEUTIC TAB PO (08:01)
[2018-12-11] MEDS: AMLODIPINE 10 MG TAB PO (08:01)
[2018-12-11] MEDS: LISINOPRIL 20 MG TAB PO (08:01)
[2018-12-11] MEDS: CLOPIDOGREL 75 MG TAB PO (08:01)
[2018-12-11] MEDS: GABAPENTIN 100 MG CAP PO ×3 (08:01→20:52)
[2018-12-11] MEDS: ASCORBIC ACID 500 MG TAB PO ×2 (08:01→20:52)
[2018-12-11 10:10] LABS: BLOOD UREA NITROGEN 20 mg/dl (7-20)
[2018-12-11 10:10] LABS: CREATININE 0.77 mg/dl (0.61-1.24)
[2018-12-11] MEDS: DAKINS 0.0125%(1/40) 473 ML SOLUTION TP (11:52)
[2018-12-11] MEDS: INSULIN GLARGINE [LANTus] (100 UNITS/ML) SYG SC (20:54)
[2018-12-12] MEDS: ACCU-CHEK XX (02:00)
[2018-12-12] MEDS: VANCOMYCIN HCL 1.75 GM in SOD CHLORIDE 0.9% 500 ML IVPB (05:56)
[2018-12-12] MEDS: INSULIN ASPART [NOVOLOG] 3 ML PEN SC ×4 (08:00→12:32)
[2018-12-12] MEDS: GABAPENTIN 100 MG CAP PO ×2 (08:42→12:32)
[2018-12-12] MEDS: MULTIVITAMINS THERAPEUTIC TAB PO (08:42)
[2018-12-12] MEDS: LISINOPRIL 20 MG TAB PO (08:43)
[2018-12-12] MEDS: ASCORBIC ACID 500 MG TAB PO (08:43)
[2018-12-12] MEDS: CLOPIDOGREL 75 MG TAB PO (08:43)
[2018-12-12] MEDS: AMLODIPINE 10 MG TAB PO (08:43)
[2018-12-12] MEDS: HYDROCODONE/APAP (5/325) TAB PO (11:16)
== END 2018-12-12 15:00 | disposition home health service (06) | DRG 253 ==
LOC: PP2 11-24 19:52 → FTE 21:28 → PP2 23:58
PROC: 047P3ZZ Dilation of Right Anterior Tibial Artery, Percutaneous Approach (ICD-10-PCS; principal; 2018-11-26 15:21)
PROC: 0JBQ0ZZ Excision of Right Foot Subcutaneous Tissue and Fascia, Open Approach (ICD-10-PCS; 2018-11-26 15:21)
PROC: 047R3ZZ Dilation of Right Posterior Tibial Artery, Percutaneous Approach (ICD-10-PCS; 2018-11-26 15:21)
PROC: 047V3ZZ Dilation of Right Foot Artery, Percutaneous Approach (ICD-10-PCS; 2018-11-26 15:21)
PROC: B41DYZZ Fluoroscopy of Aorta and Bilateral Lower Extremity Arteries using Other Contrast (ICD-10-PCS; 2018-11-26 15:21)
PROC: 02HV33Z Insertion of Infusion Device into Superior Vena Cava, Percutaneous Approach (ICD-10-PCS; 2018-11-26 15:21)
DX: E11.51 Type 2 diabetes mellitus with diabetic peripheral angiopathy without gangrene (principal); M86.9 Osteomyelitis, unspecified; L03.115 Cellulitis of right lower limb; E11.621 Type 2 diabetes mellitus with foot ulcer; E11.69 Type 2 diabetes mellitus with other specified complication; L97.509 Non-pressure chronic ulcer of other part of unspecified foot with unspecified severity; E11.42 Type 2 diabetes mellitus with diabetic polyneuropathy; E11.65 Type 2 diabetes mellitus with hyperglycemia; E78.5 Hyperlipidemia, unspecified; E66.9 Obesity, unspecified; I70.201 Unspecified atherosclerosis of native arteries of extremities, right leg; R03.0 Elevated blood-pressure reading, without diagnosis of hypertension; B95.0 Streptococcus, group A, as the cause of diseases classified elsewhere; B95.8 Unspecified staphylococcus as the cause of diseases classified elsewhere; Z68.30 Body mass index [BMI] 30.0-30.9, adult; Z87.891 Personal history of nicotine dependence; Z79.84 Long term (current) use of oral hypoglycemic drugs
CPT/HCPCS: 36415; 36569; 71045; 73660; 73718; 75630; 76937; 80048; 80053; 80061; 80202; 81001; 82043; 82306; 82565; 82962; 83036; 83690; 83735; 84100; 84443; 84520; 85025; 85610; 85651; 85730; 86140; 87040-91; 87070; 87102; 87116; 93005; 93922; 93970; 96365; 96375; 99285-25

== ENCOUNTER 2018-12-17 02:52 | Emergency (ER) | payer MEDICAID ==
[2018-12-17] MEDS: HYDROCODONE/APAP (10/325) TAB PO (04:09)
[2018-12-17] MEDS: ONDANSETRON (ODT) 4 MG TAB ODT (04:09)
== END 2018-12-17 04:59 | disposition home or self-care (01) ==
LOC: FTE 02:52
DX: G89.18 Other acute postprocedural pain (principal)
CPT/HCPCS: 73630; 73660; 99283-25

== ENCOUNTER 2019-01-06 11:45 | Emergency (ER) | payer MEDICAID | END 2019-01-06 14:05 | disposition home or self-care (01) | LOC: FTE 11:45 | DX: M86.9 Osteomyelitis, unspecified (principal); E11.9 Type 2 diabetes mellitus without complications; Z79.4 Long term (current) use of insulin | CPT/HCPCS: 99282; Z7502 ==